=== PATIENT | female | born 1980 | race Caucasian/White ===

== ENCOUNTER 2018-09-23 13:16 | Inpatient (IN) | payer OTHER ==
[~2018-09-23] VITALS: Ht 162.6 cm; Wt 75.3 kg
[2018-09-23 13:25] VITALS: BP 134/85
--- NOTE | 2018-09-23 13:35 | NUR ---
PT. WAS SENT BY URGENT CARE WITH FAMILY WITH C/O RUQ PAIN RADIATING TO THE BACK WITH NAUSEA X 3 DAYS. PT. DENIES ANY VOMITING OR DIARRHEA. DENIES ANY FEVER OR CHILLS. DENIES ANY DYSURIA. PT.HAS 4/10 DULL PAIN THAT RADIATES TO BACK. ABD ROUND AND SOFT. WILL CONTINUE TO MONITOR. ER MD MADE AWARE. SAFETY PRECAUTIONS IN PLACE. FAMILY MEMBER AT BEDSIDE.
--- NOTE | 2018-09-23 13:35 | NUR ---
Note undone in EDM - 09/23/18 at 1353 by [place] PT. WAS SENY BY URGENT CARE WITH FAMILY WITH C/O RUQ PAIN RADIATING TO THE BACK WITH NAUSEA X 3 DAYS. PT. DENIES ANY VOMITING OR DIARRHEA. DENIES ANY FEVER OR CHILLS. DENIES ANY DYSURIA. PT.HAS 4/10 DULL PAIN THAT RADIATES TO BACK. ABD ROUND AND SOFT. WILL CONTINUE TO MONITOR. ER MADE AWARE. SAFETY PRECAUTIONS IN PLACE. FAMILY MEMBER AT BEDSIDE.
[2018-09-23] MEDS ORDERED: KETOROLAC 30 MG/ML VIAL IVP ONE (13:55)
[2018-09-23 14:21] LABS: BASOPHILS % (AUTO) 0.3 % (0.0-2.0); EOSINOPHILS # (AUTO) 0.1 K/uL (0-0.4); EOSINOPHILS % (AUTO) 0.8 % (0.0-4.0); HEMATOCRIT 39.8 % (36-48); HEMOGLOBIN 13.1 g/dL (12.0-16.0); LYMPHOCYTES # (AUTO) 2.8 K/uL (2.5-16.5); LYMPHOCYTES % (AUTO) 30.8 % (20.5-51.1); MEAN CORPUSCULAR HEMOGLOBIN 28 pg (27-31); MEAN CORPUSCULAR HGB CONC 33 g/dL (33-37); MEAN CORPUSCULAR VOLUME 85.8 fL (80-94); MONOCYTES # (AUTO) 0.5 K/uL (0.8-1.0); MONOCYTES % (AUTO) 5.3 % (1.7-9.3); NEUTROPHILS # (AUTO) 5.7 K/uL (1.8-7.7); NEUTROPHILS % (AUTO) 62.8 % (42.2-75.2); PLATELET COUNT (AUTO) 287 K/uL (140-450); RED BLOOD CELL COUNT(AUTO) 4.64 MIL/uL (4.20-5.40); RED CELL DISTRIBUTION WIDTH 12.9 % (11.6-13.7)
[2018-09-23 14:24] LABS: APPEARANCE,URINE CLEAR (CLEAR); BILIRUBIN,URINE 1+ (NEGATIVE); BLOOD, URINE NEGATIVE (NEGATIVE); COLOR,URINE YELLOW (YELLOW); LEUKOCYTE ESTERASE ,URINE NEGATIVE (NEGATIVE); NITRITE, URINE NEGATIVE (NEGATIVE); UGLUCOSE NEGATIVE (NEGATIVE)
--- NOTE | 2018-09-23 14:27 | NUR ---
PATIENT IS BACK FROM CT, VIA WHEELCHAIR ACCOMPANIED BY [employer].
[2018-09-23 14:33] LABS: ANION GAP 6.5 (8-16); CARBON DIOXIDE 28.2 mmol/L (21-32); CREATININE 0.6 mg/dL (0.6-1.3); POTASSIUM 3.7 mmol/L (3.5-5.1)
[2018-09-23 14:39] LABS: ALBUMIN 3.9 g/dL (3.4-5.0); TOTAL BILIRUBIN 0.5 mg/dL (0.0-1.0)
--- NOTE | 2018-09-23 15:24 | NUR ---
PT. RESTING COMFORTABLY IN BED, RR EVEN AND UNLABORED. VSS. HOB ELEVATED. FAMILY MEMBER AT BEDSIDE. WILL CONTINUE TO MONITOR.
[2018-09-23] MEDS ORDERED: PIPERACILLIN/TAZOBACTAM 3.375 GM in DEXTROSE 5% 50 ML IV ONE (15:45)
--- NOTE | 2018-09-23 15:49 | NUR ---
JOANNE FROM [facility] STATED " SHE CAN BE ADMITTED FOR OBSERVATION ONLY 72 HOURS, BUT IF SHE NEEDS TO STAY LONGER THAN THAT AND A SURGICAL CONSULT THEN THE HOTEL SERVICE SUPERVISOR WOULD HAVE TO CALL US AND SUBMIT MORE CLINICAL INFORMATION". ER MD WHIPPLE MADE AWARE
[2018-09-23] MEDS ORDERED: PIPERACILLIN/TAZOBACTAM 3.375 GM VIAL IV ONE (15:55)
--- NOTE | 2018-09-23 16:06 | NUR ---
PT. LAYING DOWN IN BED, RR EVEN AND UNLABORED. VSS. NO PAIN AT THIS TIME. WILL CONTINUE TO MONITOR.
[2018-09-23] MEDS ORDERED: ONDANSETRON 4 MG/2 ML VIAL IVP PRN (16:15)
--- NOTE | 2018-09-23 16:43 | NUR ---
Patient will be admitted to care of DR. MCNEIL. Admited to MED SURG . Will go to room 112A. Belongings list completed. Report to REE SON .
[2018-09-23 16:45] VITALS: BP 119/76
--- NOTE | 2018-09-23 16:50 | NUR ---
PT ARRIVED FROM ER IN [facility], REPORT RECIEVED FROM CYNTHYA, PT AWAKE ALERT, RESP EVEN UNABORED, SKIN WARM DRY COLOR WNL, PT AMBUALTED FROM HALLWAY TO BED WITH STEADY GAIT, DENIES PAIN OR DISCOMFORT AT THIS TIME, PT ORIENTED TO ROOM AND UNIT, CALL AMOS WITHIN REACH, SIDE RAILS UP, BED LOCKED IN LOW POSITION, PLAN OF CARE REVIEWED, PT AWARE OF NPO STATUS, IVF LR STARTED AT 100ML/HR, IV SITE WNL, WILL CONTINUE TO [facility].
[2018-09-23] MEDS: LACTATED RINGERS 1,000 ML IV SCH (17:04)
--- NOTE | 2018-09-23 18:05 | NUR ---
PT SITTING UP TALKING WITH FAMILY, APPEARS IN NAD, PT UP TO BATHROOM WITH STEADY GAIT.
--- NOTE | 2018-09-23 18:30 | NUR ---
PT C/O 02/08 ABD PAIN, WILL MEDICATE PER ORDER.
[2018-09-23] MEDS: MORPHINE SULFATE 4 MG/ML SYR IVP PRN (18:44)
--- NOTE | 2018-09-23 19:25 | NUR ---
RECEIVED REPORT FORM DAY SHIFT NURSE AT PT BEDSIDE. PT AAOX4, RESTING IN BED COMFORTABLY. FAMILY IS AT BEDSIDE. PT IS ON RA WITH RESPIRATIONS EVEN AND UNLABORED. IV ACCESS IN L AC 22G WITH IVF RUNNING PER MD ORDERS. IV IS PATENT AND INTACT. PT SKIN IS INTACT. NO C/O PAIN AT THIS TIME. BED IS LOCKED, LOW POSITION WITH SIDE RAILS UP X2. CALL LIGHT IS WITHIN REACH. BOARD UPDATED. WILL CONTINUE TO MONITOR PT.
--- NOTE | 2018-09-23 19:25 | NUR ---
REPORT GIVEN TO SENIOR BOOKKEEPER NURSE JORDAN PT RESTING QUIETLY, STATES PAIN IS IMPROVED AFTER MORPHINE.
[2018-09-23] MEDS: PIPER/TAZO 3.375GM/D5W PREMIX 50 ML IV SCH (20:00)
--- NOTE | 2018-09-23 20:00 | NUR ---
ADMINISTERED SCHEDULED ANTIBIOTIC. PT RESTING COMFORTABLY IN BED. NO SIGNS OR SYMPTOMS OF DISTRESS. WILL CONTINUE TO MONITOR.
[2018-09-23] MEDS ORDERED: PIPERACILLIN/TAZOBACTAM 3.375 GM in DEXTROSE 5% 50 ML IV SCH (21:00)
--- NOTE | 2018-09-23 22:30 | NUR ---
CONSENT FOR SURGERY PRINTED, PT DOES NOT WANT TO SIGN UNTIL SHE SPEAKS WITH DR. KO AND HAS ALL QUESTIONS ANSWERED.
[2018-09-24] VITALS: BP 119/65
[2018-09-24] MEDS: PIPER/TAZO 3.375GM/D5W PREMIX 50 ML IV SCH ×3 (04:08→21:26)
[2018-09-24] MEDS: LACTATED RINGERS 1,000 ML IV SCH ×3 (04:08→18:50)
--- NOTE | 2018-09-24 04:08 | NUR ---
SCHEDULED MEDICATION ADMINISTERED. NEW BAG OF IVF STARTED. PT ASLEEP IN BED. NO SIGNS OR SYMPTOMS OF DISTRESS. WILL CONTINUE TO MONITOR.
[2018-09-24 06:55] LABS: BASOPHILS % (AUTO) 0.4 % (0.0-2.0); EOSINOPHILS # (AUTO) 0.1 K/uL (0-0.4); EOSINOPHILS % (AUTO) 2.1 % (0.0-4.0); HEMATOCRIT 35.1 % (36-48); HEMOGLOBIN 11.6 g/dL (12.0-16.0); LYMPHOCYTES # (AUTO) 2.8 K/uL (2.5-16.5); MEAN CORPUSCULAR HEMOGLOBIN 28 pg (27-31); MEAN CORPUSCULAR HGB CONC 33 g/dL (33-37); MEAN CORPUSCULAR VOLUME 85.6 fL (80-94); MONOCYTES # (AUTO) 0.4 K/uL (0.8-1.0); MONOCYTES % (AUTO) 6.2 % (1.7-9.3); NEUTROPHILS # (AUTO) 3.1 K/uL (1.8-7.7); NEUTROPHILS % (AUTO) 48.3 % (42.2-75.2); PLATELET COUNT (AUTO) 239 K/uL (140-450); RED CELL DISTRIBUTION WIDTH 12.9 % (11.6-13.7); WHITE BLOOD COUNT (AUTO) 6.5 K/uL (4.8-10.8)
--- NOTE | 2018-09-24 07:14 | NUR ---
ENDORSED PT TO DAY SHIFT NURSE FOR CONTINUITY OF CARE. PT IN STABLE CONDITION.
--- NOTE | 2018-09-24 07:30 | NUR ---
RECEIVED PT ON BED AAOX4. NO SOB NOTED. NO C/O PAIN AT THIS TIME. IV TO LT AC PATENT AND INTACT. CHEST CLEAR. ABDOMEN SOFT, BOWEL SOUNDS PRESENT. NO EDEMA NOTED. NPO MAINTAINED FOR PROCEDURE. INSTRUCTED PT TO CALL FOR ASSISTANCE, CALL LIGHT WITHIN REACH, VERBALIZED UNDERSTANDING.
[2018-09-24 07:53] LABS: ALBUMIN 3.2 g/dL (3.4-5.0); CARBON DIOXIDE 28.5 mmol/L (21-32); CREATININE 0.6 mg/dL (0.6-1.3); POTASSIUM 3.5 mmol/L (3.5-5.1); TOTAL BILIRUBIN 0.7 mg/dL (0.0-1.0)
--- NOTE | 2018-09-24 08:05 | NUR ---
PATIENT HAS BEEN SCREENED AND CATEGORIZED MODERATE NUTRITION RISK. PATIENT WILL BE SEEN WITHIN 3-5 DAYS OF ADMISSION. 09/26/18YOANNA [address] RD
--- NOTE | 2018-09-24 08:15 | NUR ---
PT SEEN BY DR. MCNEIL, NO NEW CORDERS.
--- NOTE | 2018-09-24 08:30 | NUR ---
PT WHEELED TO SURGERY IN STABLE CONDITION. NO COMPLAINTS MADE. NPO MAINTAINED. CONSENT FOR SURGERY SIGNED BY PT, VERBALIZED UNDERSTANDING.
[2018-09-24 08:31] VITALS: BP 109/63
[2018-09-24] MEDS ORDERED: DEXAMETHASONE 4 MG/ML VIAL ONE (09:00)
[2018-09-24] MEDS ORDERED: ONDANSETRON 4 MG/2 ML VIAL IVP PRN (09:00)
[2018-09-24] MEDS ORDERED: SUCCINYLCHOLINE CHLORIDE 200 MG/10 ML VIAL IVP ONE (09:00)
[2018-09-24] MEDS ORDERED: HYDROmorphone 1 MG/ML AMP IVP PRN (09:00)
[2018-09-24] MEDS ORDERED: NEOSTIGMINE 1:1000 10 MG/10 ML VIAL ONE (09:00)
[2018-09-24] MEDS ORDERED: PROPOFOL 200 MG/20 ML VIAL IV ONE (09:00)
[2018-09-24] MEDS ORDERED: KETOROLAC 30 MG/ML VIAL ONE (09:00)
[2018-09-24] MEDS ORDERED: DESFLURANE 240 ML BTL INH ONE (09:00)
[2018-09-24] MEDS ORDERED: ROCURONIUM 50 MG/5 ML VIAL IV ONE (09:00)
[2018-09-24] MEDS ORDERED: GLYCOPYRROLATE 0.2 MG/ML VIAL ONE (09:00)
[2018-09-24] MEDS ORDERED: ONDANSETRON 4 MG/2 ML VIAL ONE (09:00)
[2018-09-24] MEDS ORDERED: BUPIVACAINE-MPF/EPI 0.25% 30 ML VIAL INJ ONE (09:03)
[2018-09-24] MEDS ORDERED: HYDROmorphone PFS 2 MG/ML SYR ONE (09:11)
[2018-09-24] MEDS ORDERED: fentaNYL 0.05 MG/ML VIAL ONE (09:11)
--- NOTE | 2018-09-24 11:20 | NUR ---
pt back from surgery in stable condition. AAOX4. no sob noted. no c/o pain at this time. with 4 small abdomen incisions s/p lap sukhi. 4 bandaid dressings dry and intact. will continue to monitor pt.
[2018-09-24] MEDS: MORPHINE SULFATE 4 MG/ML SYR IVP PRN ×3 (12:07→21:26)
--- NOTE | 2018-09-24 15:00 | NUR ---
PT STATED SHE WAS FEELING DIZZY WHEN TYING TO GOT UP. PROVIDED WITH BEDPAN, ,PT ABLE TO VOID LARGE AMOUNTS OF CLEAR YELLOW URINE. ENCOURAGED AMBULATION.
[2018-09-24 16:00] VITALS: BP 118/71
--- NOTE | 2018-09-24 17:15 | NUR ---
PT ABLE TO AMBULATE TO THE BATHROOM, ACTIVITY TOLERATED.
--- NOTE | 2018-09-24 18:25 | NUR ---
CLEAR LIQUIDS TOLERATED WELL.
--- NOTE | 2018-09-24 19:07 | NUR ---
PT AWAKE, TALKING TO FAMILY AT THE BEDSIDE. NO SOB NOTED. NO SIGNS OF PAIN. WILL ENDORSE TO NEXT SHIFT NURSE FOR CONTINUITY OF CARE.
--- NOTE | 2018-09-24 19:20 | NUR ---
RECEIVED REPORT FROM DAY SHIFT NURSE AT PT BEDSIDE. PT AAOX4, RESTING IN BED COMFORTABLY. FAMILY IS AT BEDSIDE. PT IS ON RA WITH RESPIRATIONS EVEN AND UNLABORED. IV ACCESS IN L AC 22G WITH IVF RUNNING PER MD ORDERS. IV IS PATENT AND INTACT. PT IS S/P LAP CHOLEY WITH FOUR CLEAN, DRY AND INTACT DRESSINGS ON ABDOMEN. NO C/O PAIN AT THIS TIME. BED IS LOCKED, LOW POSITION WITH SIDE RAILS UP X2. CALL LIGHT IS WITHIN REACH. BOARD UPDATED. WILL CONTINUE TO MONITOR PT.
--- NOTE | 2018-09-24 21:26 | NUR ---
ADMINISTERED SCHEDULED ANTIBIOTIC. PT C/O PAIN, MORPHINE GIVEN. PT TOLERATED WELL. NO SIGNS OR SYMPTOMS OF DISTRESS. WILL CONTINUE TO MONITOR.
[2018-09-25] VITALS: BP 111/62
[2018-09-25] MEDS: PIPER/TAZO 3.375GM/D5W PREMIX 50 ML IV SCH ×2 (05:05→13:40)
[2018-09-25] MEDS: LACTATED RINGERS 1,000 ML IV SCH (05:05)
[2018-09-25] MEDS: MORPHINE SULFATE 4 MG/ML SYR IVP PRN ×3 (05:05→13:36)
--- NOTE | 2018-09-25 05:05 | NUR ---
PT SPILLED WATER IN BED, LINENS CHANGED. ADMINISTERED SCHEDULED ANTIBIOTIC AND NEW BAG OF IVF STARTED. PT C/O PAIN, MORPHINE GIVEN. PT TOLERATED WELL. NO SIGNS OR SYMPTOMS OF DISTRESS. WILL CONTINUE TO MONITOR.
[2018-09-25 07:05] LABS: ANION GAP 9.4 (8-16); CARBON DIOXIDE 30.5 mmol/L (21-32); CREATININE 0.7 mg/dL (0.6-1.3); POTASSIUM 3.9 mmol/L (3.5-5.1); TOTAL BILIRUBIN 0.7 mg/dL (0.0-1.0)
--- NOTE | 2018-09-25 07:05 | NUR ---
ENDORSED PT TO DAY SHIFT NURSE DEANA FOR CONTINUITY OF CARE. PT IN STABLE CONDITION.
--- NOTE | 2018-09-25 07:07 | NUR ---
RECEIVED BEDSIDE REPORT FROM ALGORITHM DESIGN ENGINEER NURSE. PT ON BED AAOX4. NO SIGNS OF DISTRESS NOTED. DENIES OF PAIN AT THIS TIME. IV ON LT AC PATENT AND INTACT. IV SITE CLEAN AND DRY. ABDOMEN SOFT, BOWEL SOUNDS PRESENT. DRESSING DRY, CLEAN, AND NO DRAINAGE NOTED. PROVIDED ORAL CARE SUPPLIES REQUESTED BY PATIENT. REVIEW PLAN OF CARE WITH PATIENT, PATIENT VERBALIZED UNDERSTANDING. BED IN LOW POSITION WITH 2 SIDE RAILS UP , CALL LIGHT WITHIN REACH.
[2018-09-25 08:00] VITALS: BP 119/67
[2018-09-25] MEDS ORDERED: HYDR-5122 PO (08:56)
--- NOTE | 2018-09-25 09:03 | NUR ---
PATIENT HAS PASSED GAS AND FLATULENCE AT THIS TIME. PATIENT STATED THAT SHE IS READY TO GO HOMW AND ALSO STATED PAIN LEVEL IS 3/1O WITHIN HER TOLERATED LIMIT. WILL CONTINUE TO MONITOR.
--- NOTE | 2018-09-25 09:21 | NUR ---
REMOVED BANDAGES OVER THE INCISIONS, RINSED WITH NS, PATTED DRY, PIC TAKEN. COVERED WITH GAUZE AND PAPER TAPE. PT TOLERATED WELL.
[2018-09-25] MEDS ORDERED: DOCUSATE SODIUM 100 MG GELCAP PO PRN (09:25)
[2018-09-25] MEDS ORDERED: INFLUENZA VIRUS VACCINE QUAD 0.5 ML SYR IMVAC PRN (10:00)
--- NOTE | 2018-09-25 10:20 | NUR ---
PRUNE JUICE PROVIDED. PT HAS ACTIVE BOWEL SOUND. ABLE TO PASS GAS.
[2018-09-25 12:15] LABS: BASOPHILS % (AUTO) 0.2 % (0.0-2.0); EOSINOPHILS % (AUTO) 0.3 % (0.0-4.0); HEMATOCRIT 34.6 % (36-48); HEMOGLOBIN 11.4 g/dL (12.0-16.0); LYMPHOCYTES % (AUTO) 23.3 % (20.5-51.1); MEAN CORPUSCULAR HEMOGLOBIN 29 pg (27-31); MEAN CORPUSCULAR HGB CONC 33 g/dL (33-37); MEAN CORPUSCULAR VOLUME 86.9 fL (80-94); MONOCYTES # (AUTO) 0.5 K/uL (0.8-1.0); MONOCYTES % (AUTO) 5.8 % (1.7-9.3); NEUTROPHILS # (AUTO) 6.1 K/uL (1.8-7.7); NEUTROPHILS % (AUTO) 70.4 % (42.2-75.2); PLATELET COUNT (AUTO) 235 K/uL (140-450); RED BLOOD CELL COUNT(AUTO) 3.98 MIL/uL (4.20-5.40); RED CELL DISTRIBUTION WIDTH 12.6 % (11.6-13.7); WHITE BLOOD COUNT (AUTO) 8.7 K/uL (4.8-10.8)
--- NOTE | 2018-09-25 14:33 | NUR ---
PT DISCHARGED PER MD ORDER. MEDICATION TEACHING AND DISCHARGE INSTRUCTIONS GIVEN. PT VERBALIZED UNDERSTANDING, DISCHARGE PAPER SIGNED, RX GIVEN. DR KO'S BUSINESS CARD PROVIDED. PT DRESSED UP WITH HELP FROM HER . PT TOLERATED WELL. NO S/S OF ACUTE DISTRESS NOTED. WHEELED PT TO [facility]. Addendum: 09/25/18 at 1439 by Scottie Betancourt RN IV DC'D, TIP INTACT, PRESSURE APPLIED.
== END 2018-09-25 14:35 | disposition home or self-care (01) | DRG 263 ==
LOC: MED 13:16 → MTU 16:20 → UNDOADMOB 16:20 → MTU 09-24 00:03 → INTOOBSV 09-24 00:23 → OBSVTOIN 09-24 00:23
PROVIDERS: ADMIT Internal Medicine; ATTEND Internal Medicine
PROC: 0FT44ZZ Resection of Gallbladder, Percutaneous Endoscopic Approach (ICD-10-PCS; principal; 2018-09-24 08:30)
PROC: 3E02340 Introduction of Influenza Vaccine into Muscle, Percutaneous Approach (ICD-10-PCS; 2018-09-25)
DX: K80.12 Calculus of gallbladder with acute and chronic cholecystitis without obstruction (principal); E87.8 Other disorders of electrolyte and fluid balance, not elsewhere classified; E66.9 Obesity, unspecified; Z68.28 Body mass index [BMI] 28.0-28.9, adult; Z23 Encounter for immunization
CPT/HCPCS: 96365; 96375; 99285; G0378; 36415; 80053; 81003; 81025; 82374; 83690; 85025; 86886; 86900; 86901; 87081; 88304; 90658; J0330; J1100; J1170; J1885; J2270; J2405; J2543; J2704; J2710; J3010; J3490; J7030; J7060; J7120